=== PATIENT | male | born 1960 | race Caucasian/White ===

== ENCOUNTER 2022-05-15 14:11 | Inpatient (IN) | payer OTHER, SELFPAY ==
[2022-05-15] VITALS (11 sets, daily range): BP systolic 103–125; BP diastolic 62–81; PULSE 77–87; RESP 16–20; TEMP 36.4–36.6; O2SAT 94–97
--- NOTE | ~2022-05-15 | XR_ITS ---
EXAMINATION: XR chest 1V portable DATE: 05/15/2022 14:52 INDICATION: Midsternal chest pain post rotator cuff surgery TECHNIQUE: frontal view of the chest was obtained. COMPARISON: None FINDINGS: Mild elevation of the left hemidiaphragm. Pulmonary vascular congestion. Mild airspace opacities at t he left lung base. No pleural effusion or pneumothorax. The cardiomediastinal silhouette is normal. IMPRESSION: 1. Pulmonary vascular congestion. 2. Opacities at the left lung base which could represent atelectasis with elevation of left hemidiaph ragm although differential would include pneumonia or mild pulmonary edema. Reviewed, dictated and finalized at location B. IMPRESSION: 1. Pulmonary vascular congestion. 2. Opacities at the left lung base which could represent atelectasis with eleva tion of left hemidiaphragm although differential would include pneumonia or mil d pulmonary edema.
--- NOTE | 2022-05-15 14:22 | ECG_ITS ---
Measurements Intervals [place] Rate: 89 P: 52 IN: 141 QRS: 52 QRSD: 95 T: 46 QT: 368 QTc: 449 Interpretive Statements SINUS RHYTHM POSSIBLE LEFT ATRIAL ENLARGEMENT INCOMPLETE RIGHT BUNDLE BRANCH BLOCK BASELINE ARTIFACT- I, II, AVR, AVL, AVF BORDERLINE ECG Electronically Signed On 05-15-2022 14:25:42 CDT by Gilberto Solares D.O.
--- NOTE | 2022-05-15 14:25 | ED.CHESTPAIN ---
HPI - Chest Pain General Chief Complaint: Chest Pain Stated Complaint: STEMI Time Seen by Provider: 05/15/22 14:14 History of Present Illness HPI narrative: Patient is 62 years old 1 hour status post left shoulder surgery at the surgical center, while was in the recovery room started having retrosternal chest pain going to his neck and jaw. EMT arrived and called out emergency room for STEMI. That EKG and out EKG on arrival to the emergency room showed no signs of STEMI. Dr. Gaspar was notified and agreed with our reading for the EKG. Dr. Rob as well notified and agreed that the EKG did not show STEMI. History of diabetes, hypertension, hyperlipidemia, 5 coronary stents last one was 7 years ago at [facility]. Patient also smokes, drinks and does not use drugs. Currently patient on aspirin 81 mg once a day and the Brilinta Related Data Allergies Allergy/AdvReac Type Severity Reaction Status Date / Time No Known Allergies Allergy Verified 05/15/22 14:31 Review of Systems Review of Systems: All systems reviewed & are unremarkable except as noted in HPI and below Exam Narrative: General appearance: Well-developed, well-nourished, looks in pain Skin: Pale Head: Normocephalic, nontraumatic Eyes: Clear conjunctiva ENT: Oropharynx normal, ears normal, nose normal Neck: Supple, nontender Chest and respiratory: Airway patent, no respiratory distress, no accessory muscle use Heart: Regular rate/rhythm Abdomen: Soft, nontender, no organomegaly, quiet bowel sounds Vascular: Normal peripheral pulses, normal capillary refill. Musculoskeletal: Left shoulder dressing in place with severe limited range of motion Neurologic: Alert and oriented ?3, ROLLER PAINTER is normal as tested, no gross motor deficit Course Consultations Consultation #1: Dr. Parekh EKG showed no STEMI Vital Signs Vital signs: Vital Signs Temperature 36.4 C L 05/15/22 14:16 Pulse Rate 82 05/15/22 14:16 Respiratory Rate 20 05/15/22 14:16 Blood Pressure 122/77 05/15/22 14:16 Pulse Oximetry 94 05/15/22 14:16 Oxygen Delivery Room Air 05/15/22 14:16 Temperature 36.4 C L 05/15/22 14:16 Pulse Rate 85 05/15/22 15:09 Respiratory Rate 16 05/15/22 15:09 Blood Pressure 103/72 05/15/22 15:09 Pulse Oximetry 96 05/15/22 15:09 Oxygen Delivery Room Air 05/15/22 14:30 MDM - Chest Pain Differential Diagnosis Differential diagnosis: Likely chest pain Medical Records Data Attestation: I reviewed the patient's medical records. Lab Data Result diagrams: 05/15/22 14:26 05/15/22 14:26 Labs: Lab Results 05/15/22 05/15/22 05/15/22 Range/Units 14:26 14:26 14:26 WBC 10.8 H (4.5-10.0) K/mm3 RBC 5.65 (4.6-6.20) M/mm3 Hgb 16.5 (14.0-18.0) g/dL Hct 49.5 (42.0-52.0) % MCV 87.6 (80-100) fl MCH 29.2 (26-34) pg MCHC 33.3 (32-36) g/dl RDW 12.3 (11.5-14.5) % Plt Count 176 (150-375) k/mm3 MPV 9.8 (7.4-10.4) fl Immature Gran % (Auto) 0.6 H (0-0.5) % Neut % (Auto) 87.5 H (45.5-73.1) % Lymph % (Auto) 8.7 L (18.3-44.2) % Kings % (Auto) 2.3 L (2.6-8.5) % Eos % (Auto) 0.4 (0-4.4) % Baso % (Auto) 0.5 (0.2-1.2) % Lymph # (Auto) 0.94 (0.9-3.2) K/mm3 Kings # (Auto) 0.3 (0.1-0.6) K/mm3 Eos # (Auto) 0.0 (0-0.3) K/mm3 Baso # (Auto) 0.1 (0.0-0.1) K/mm3 Abs Immat Gran (auto) 0.06 H (0.00-0.031) K/mm3 Absolute Neuts (auto) 9.4 H (1.3-6.7) K/mm3 Absolute Nucleated RBC 0.0 (0.0-0.012) K/mm3 Nucleated RBC % 0.0 (0.0-0.2) % PT 13.6 (11.1-14.7) Seconds INR 1.1 APTT 33.5 (22.3-36.8) SECONDS Sodium 136 L (137-145) mmol/
[2022-05-15 14:33] LABS: Basophils Absolute Auto 0.1 K/mm3 (0.0-0.1); Basophils Percent Auto 0.5 % (0.2-1.2); Eosinophils Percent Auto 0.4 % (0-4.4); Hematocrit 49.5 % (42.0-52.0); Hemoglobin 16.5 g/dL (14.0-18.0); Immature Granulocyte Absolute 0.06 K/mm3 (0.00-0.031); Immature Granulocyte Percent A 0.6 % (0-0.5); Lymphocytes Absolute Auto 0.94 K/mm3 (0.9-3.2); Lymphocytes Percent Auto 8.7 % (18.3-44.2); Mean Corpuscular HGB Conc 33.3 g/dl (32-36); Mean Corpuscular Hemoglobin 29.2 pg (26-34); Mean Corpuscular Volume 87.6 fl (80-100); Mean Platelet Volume 9.8 fl (7.4-10.4); Monocytes Absolute Auto 0.3 K/mm3 (0.1-0.6); Monocytes Percent Auto 2.3 % (2.6-8.5); Neutrophils Absolute Auto 9.4 K/mm3 (1.3-6.7); Neutrophils Percent Auto 87.5 % (45.5-73.1); Platelet Count Result 176 k/mm3 (150-375); Red Blood Count 5.65 M/mm3 (4.6-6.20); Red Cell Distribution Width 12.3 % (11.5-14.5); White Blood Count 10.8 K/mm3 (4.5-10.0)
[2022-05-15] MEDS: METOPROLOL TARTRATE 50 MG TAB 25 MG PO (14:40)
[2022-05-15 14:44] LABS: Alanine Aminotransferase 31 U/L (6-50); Albumin Level 4.4 g/dL (3.5-5.1); Alkaline Phosphatase 73 U/L (38-126); Anion Gap 9 mmol/L (8-16); Aspartate Amino Transferase 32 U/L (17-59); Bilirubin,Total 0.6 mg/dL (0.2-1.3); Blood Urea Nitrogen 21 mg/dL (9-20); Calcium 8.5 mg/dL (8.4-10.2); Carbon Dioxide 22 mmol/L (22-30); Chloride 105 mmol/L (98-107); Estimated CRCL calculation 79 ml/min; Estimated Glomerular Filt Rate > 60; Glucose 305 mg/dL (65-110); Potassium 4.9 mmol/L (3.4-5.0); Sodium 136 mmol/L (137-145)
[2022-05-15 14:49] LABS: INR 1.1; Partial Thromboplastin Time 33.5 SECONDS (22.3-36.8); Prothrombin Time 13.6 Seconds (11.1-14.7)
[2022-05-15 14:52] LABS: NT Pro B Type Natriuretic Pept 71 pg/mL (5-100)
[2022-05-15 15:04] LABS: Troponin I < 0.012 ng/mL (0.000-0.034)
--- NOTE | 2022-05-15 15:34 | PM.IMHP ---
H&P: HPI History of Present Illness Date/Time: 05/15/22 15:30 Chief Complaint: Chest pain Narrative: this pleasant, 62-year-old male patient with significant of diabetes mellitus, hypertension, hyperlipidemia, coronary stents x5 on chronic aspirin and Brilinta presents to the emergency room sent from the surgery center where he underwent an arthroscopic procedure of the left shoulder today by Dr. Rico. Patient was in the recovery room after his procedure and began screaming in pain of having chest pain. He endorse that the pain that he was experiencing at that time was central in the chest and radiated up the center of his chest and went to both jaws left and right. He described the pain as initially he was not sure and then stated that it was actually more of a pressure. He endorses that he is actually feeling it now as well. Due to his significant cardiac history patient was sent to the emergency room here for evaluation. In route to the emergency room it was called in as a STEMI. Upon further evaluation of the 12 lead EKG upon arrival there was no STEMI and repeat EKG also did not show any appreciated of STEMI. He ER physician did discuss the appearance of the EKG with 2 tower foreman, Dr. Harris and Dr. Parekh, Both of whom agreed not a STEMI. Initial troponin is negative, BNP is 71 electrolytes are within normal limits and patient does not have any signs of acute bleeding or acute infection. Hospitalist service is asked to admit the patient to observation overnight for continued rule out with serial troponins and EKGs and telemetry. patient currently has some residual mild pain left. He has Tylenol ordered for pain as well as morphine and nitroglycerin. He has been off his aspirin and Brilinta for 1 week prior to surgery. Patient denies any dyspnea, nausea, vomiting, diarrhea and he is not diaphoretic nor does he have any complaints of headache or dizziness. His vital signs are stable. Patient has been given nitroglycerin and reports that it has not made any difference in his pain. Currently at the time of my admission, the pain is at a 3/10 and is tolerable. The pt. has no other complaints at this time such as Dyspnea, N/V and no diaphoresis. He is able to speak comfortably through the HPI interview in complete, uninterrupted sentences. At the time the patient was admitted, his home medications were not yet placed into the EMR, nor were they verified by staff. Review of Systems Review of Systems: All systems reviewed & are unremarkable except as noted in HPI and below Meds Home Medications and Allergies Allergies Allergy/AdvReac Type Severity Reaction Status Date / Time No Known Allergies Allergy Verified 05/15/22 14:31 Vital Signs Vital Signs - 24 hr 05/15/22 14:16 05/15/22 14:30 05/15/22 14:40 Temperature 97.5 F L Pulse Rate 82 84 Respiratory Rate 20 Blood Pressure 122/77 Pulse Oximetry 94 94 Oxygen Delivery Room Air Room Air 05/15/22 14:46 05/15/22 15:09 Temperature Pulse Rate 87 85 Respiratory Rate 20 16 Blood Pressure 113/74 103/72 Pulse Oximetry 95 96 Oxygen Delivery Exam Const: General: no acute distress and uncomfortable Other: Patient appears slightly groggy which is likely due to the fact he just had anesthesia. The left shoulder is surgical bandage. HENMT: General nose exam: Normal nares present Mouth: Yes moist mucous membranes Eyes: General: appearance normal, both eyes and all related structures Sclera: sclerae normal Pupils: Equal, round and reactive pupils present EOM: EOMs intact bilaterally Neck: Neck: supple ( Slight tenderness to the left side moving towards the operative shoulder.) and no JVD Carotids: no bruits Chest: Other: Not currently tender to palpation. Resp: Effort & Inspection: normal respiratory effort Auscultation: clear to auscultation bilaterally Cardio: Rate: regular rate Rhythm: regular rhythm Heart sounds: no dye
[2022-05-15 16:13] LABS: SARS-CoV-2 RNA PCR Negative
[2022-05-15 17:23] LABS: Hemoglobin A1C 10.4 % (<5.7)
[2022-05-15 17:38] LABS: Troponin I 0.055 ng/mL (0.000-0.034)
[2022-05-15] MEDS: INSULIN ASPART (*BKC) 100 UNITS/ML SUB-Q (18:37)
[2022-05-15 19:14] LABS: Glucose Point of Care 245 mg/dl (65-105)
[2022-05-15] MEDS: PANTOPRAZOLE SODIUM IV 40 MG VIAL IV PUSH (21:47)
--- NOTE | 2022-05-15 22:10 | ADMGEN ---
This patient, Andrea Rosado, was admitted to IMU Room 205-02 on 05/15/22 at 2100. Patient/family oriented to hospital policies and general routines including ID bracelet, bed and alarms, visiting hours, pain management, procedures, bathroom and other care routines, personal items, smoking policy, room service/diet, and visiting hours. Information on how to activate the Rapid Response Team has been discussed. Patient/Family are encouraged to report perceived risks to care and to ask questions if they do not understand what they are told or what they should do.
[2022-05-15 22:21] LABS: Glucose Point of Care 307 mg/dl (65-105)
--- NOTE | 2022-05-15 22:37 | ECG_ITS ---
Measurements Intervals [facility] Rate: 74 P: 60 KS: 149 QRS: 50 QRSD: 108 T: 23 QT: 384 QTc: 428 Interpretive Statements SINUS RHYTHM INCOMPLETE RIGHT BUNDLE BRANCH BLOCK BORDERLINE ECG Electronically Signed On 05-16-2022 9:12:14 CDT by Gilberto Solares D.O.
[2022-05-16] VITALS (19 sets, daily range): BP systolic 106–144; BP diastolic 67–93; PULSE 65–92; RESP 12–20; TEMP 36.2–36.6; O2SAT 95–100
[2022-05-16] MEDS: ENOXAPARIN 100 MG/ML SYRINGE 85 MG SUB-Q (00:10)
[2022-05-16] MEDS: MORPHINE SULFATE (*CRX) 4 MG/ML INJ IV PUSH ×4 (00:21→23:37)
--- NOTE | 2022-05-16 04:29 | ECG_ITS ---
Measurements Intervals [place] Rate: 67 P: 58 ND: 142 QRS: 44 QRSD: 112 T: 29 QT: 410 QTc: 434 Interpretive Statements SINUS RHYTHM POSSIBLE LEFT ATRIAL ENLARGEMENT INCOMPLETE RIGHT BUNDLE BRANCH BLOCK BASELINE ARTIFACT- I, II BORDERLINE ECG Electronically Signed On 05-16-2022 9:23:07 CDT by Gilberto Solares D.O.
[2022-05-16] MEDS: traMADol HCL (*CRX) 50 MG TABLET PO (04:46)
[2022-05-16] MEDS: NITROGLYCERIN SL 0.4 MG TABLET SUBLINGUAL (05:12)
[2022-05-16 05:34] LABS: Basophils Percent Auto 0.2 % (0.2-1.2); Eosinophils Percent Auto 0.3 % (0-4.4); Hematocrit 45.9 % (42.0-52.0); Hemoglobin 15.2 g/dL (14.0-18.0); Immature Granulocyte Absolute 0.06 K/mm3 (0.00-0.031); Immature Granulocyte Percent A 0.4 % (0-0.5); Lymphocytes Absolute Auto 1.52 K/mm3 (0.9-3.2); Lymphocytes Percent Auto 10.9 % (18.3-44.2); Mean Corpuscular HGB Conc 33.1 g/dl (32-36); Mean Corpuscular Hemoglobin 29.1 pg (26-34); Mean Corpuscular Volume 87.8 fl (80-100); Neutrophils Absolute Auto 11.3 K/mm3 (1.3-6.7); Neutrophils Percent Auto 81.2 % (45.5-73.1); Platelet Count Result 163 k/mm3 (150-375); Red Blood Count 5.23 M/mm3 (4.6-6.20); Red Cell Distribution Width 12.2 % (11.5-14.5)
[2022-05-16 05:44] LABS: Alanine Aminotransferase 29 U/L (6-50); Alkaline Phosphatase 62 U/L (38-126); Anion Gap 8 mmol/L (8-16); Aspartate Amino Transferase 55 U/L (17-59); Bilirubin,Total 0.6 mg/dL (0.2-1.3); Blood Urea Nitrogen 21 mg/dL (9-20); Calcium 8.3 mg/dL (8.4-10.2); Carbon Dioxide 23 mmol/L (22-30); Chloride 104 mmol/L (98-107); Estimated CRCL calculation 79 ml/min; Estimated Glomerular Filt Rate > 60; Glucose 214 mg/dL (65-110); Magnesium 2.1 mg/dL (1.6-2.3); Potassium 4.2 mmol/L (3.4-5.0); Sodium 135 mmol/L (137-145)
--- NOTE | 2022-05-16 07:45 | PM.IMPN ---
Progress Note: A&P Assessment and Plan (1) NSTEMI (non-ST elevated myocardial infarction): Code(s): I21.4 - Non-ST elevation (NSTEMI) myocardial infarction Status: Acute Assessment and Plan: - Troponin continue to trend up and peaked at 5.550 - Heart Score: 5; JOSE MANUEL Score: 2 - ASA given in ED, will need to be continued when able to take PO - Nitro, Morphine and Tylenol ordered PRN. - Cardiology consulted thank you for your help - wharf labourer today - IV Protonix 40 mg BID ordered for possible etiology of Reflux given patient has been NPO since MN. - Telemetry monitoring ordered. - Fall Precautions. - Will continue statin as well when able to take PO (2) Status post shoulder surgery: Code(s): Z98.890 - Other specified postprocedural states Status: Acute Assessment and Plan: - Continue Fall Precautions. - PRN pain meds ordered. - At discharge, will follow up per Dr. Rico's recommendations. (3) CAD (coronary artery disease): Code(s): I25.10 - Atherosclerotic heart disease of [place] coronary artery without angina pectoris Status: Acute Assessment and Plan: - No Brillinta or ASA for the past 7 days. - + Hx of stent x5. - See Plan for problem #1 with ruling out of ACS. (4) Diabetes mellitus: Code(s): E11.9 - Type 2 diabetes mellitus without complications Status: Acute Assessment and Plan: - Current glucose is 214 - Accu checks AC and HS - Hypoglycemia Protocol - Heart healthy diet - SSI low dose - A1c is 10.5 - Monitor VS and AM labs - start on ISS (5) Mixed hyperlipidemia due to type 2 diabetes mellitus: Code(s): E11.69 - Type 2 diabetes mellitus with other specified complication; E78.2 - Mixed hyperlipidemia Status: Acute Assessment and Plan: Continue simvastatin when appropriate (6) Hypertension associated with diabetes: Code(s): E11.59 - Type 2 diabetes mellitus with other circulatory complications; I15.2 - Hypertension secondary to endocrine disorders Status: Acute Assessment and Plan: Current BP is 127/77 Contineu home lisinopril when appropriate trend blood pressure adjust medications as indicated Time Spent With Patient Time with patient: Greater than 35 minutes Subjective Date/time seen: 05/16/22 13:41 Interval history: 05/16/22 0745 Patient was sitting on side of bed talking on the phone. Patient stated that he has had chest pain all night off and on. He denies any accompanying symptoms including sweats, shortness of breath, nausea, vomiting. He did state the pain was 1/10. He also denied any headaches or visual changes. Patient appears stable at this time. He did state that he had gotten nitroglycerin which did help relieve the chest pain. 05/15/22? 15:30 This pleasant, 62-year-old male patient with significant of? diabetes mellitus, hypertension, hyperlipidemia, coronary stents x5 on chronic aspirin and Brilinta presents to the emergency room sent from the surgery center where he underwent an arthroscopic procedure of the left shoulder today by Dr. Rico. Patient was in the recovery room after his procedure and? began screaming in pain of having chest pain.? He endorse that the pain that he was experiencing at that time was central in the chest and radiated up the center of his chest and went to both jaws left and right.? He described the pain as initially he was not sure and then stated that it was actually more of a pressure.? He endorses that he is actually feeling it now as well.? Due to his significant cardiac history patient was sent to the emergency room here for evaluation.? In route to the emergency room it was called in as a STEMI. ? Upon further evaluation of the 12 lead EKG upon arrival there was no STEMI and repeat EKG also did not show any appreciated of STEMI.? He ER physician did discuss the appearance of the EKG with 2 superintendent building, Dr. Harris and
[2022-05-16 08:06] LABS: Glucose Point of Care 266 mg/dl (65-105)
--- NOTE | 2022-05-16 08:37 | PM.CNCAR ---
Assessment and Plan Assessment and plan (1) NSTEMI (non-ST elevated myocardial infarction): Code(s): I21.4 - Non-ST elevation (NSTEMI) myocardial infarction Status: Acute Assessment and Plan: Postop myocardial infarction history of hypertension, hyperlipidemia, type 2 diabetes mellitus, and previous known history of CAD with 5 previously placed stent 2015. Patient developed unstable angina postoperatively with elevated troponin greater than [address] elevation on EKG consistent with NSTEMI. Patient is NPO. Hold off on further systemic anticoagulation. Coronary angiography advised for delineation of coronary anatomy. Risks, benefits, and alternatives explained in detail. All questions answered to patient's satisfaction. Patient agreed to proceed with coronary angiography. Discussed with Dr. Parekh who agrees to proceed with plan of care. Patient is currently asymptomatic after sublingual nitroglycerin. Explained in detail increase risk bleeding complications given recent left shoulder surgery need for anticoagulant and dual antiplatelet therapy. Patient understands and accepts this risk. Explained the potential complications in which postoperative bleeding can result. Continue aggressive risk modification. Continue aspirin, statin, beta-maury therapy. 2D echocardiogram to assess LV wall motion, LV size/systolic and diastolic function, valve pathology pulmonary pressures. Recommendation to follow-up. Keep patient NPO anticipation of coronary angiography today. Telemetry. DVT prophylaxis. (2) CAD (coronary artery disease): Code(s): I25.10 - Atherosclerotic heart disease of [place] coronary artery without angina pectoris Status: Acute Assessment and Plan: As above. Aggressive medical therapy. Continue Jardiance, JUMA-inhibitor, simvastatin, aspirin, beta-maury therapy. (3) Hypertension associated with diabetes: Code(s): E11.59 - Type 2 diabetes mellitus with other circulatory complications; I15.2 - Hypertension secondary to endocrine disorders Status: Acute Assessment and Plan: Reasonably controlled. Continue medical therapy. (4) Mixed hyperlipidemia due to type 2 diabetes mellitus: Code(s): E11.69 - Type 2 diabetes mellitus with other specified complication; E78.2 - Mixed hyperlipidemia Status: Acute Assessment and Plan: Check lipid panel. Goal LDL less than 70. (5) Status post shoulder surgery: Code(s): Z98.890 - Other specified postprocedural states Status: Acute Assessment and Plan: Management Per surgical recommendations. Monitor for bleeding complications as counseled. (6) Diabetes mellitus: Code(s): E11.9 - Type 2 diabetes mellitus without complications Status: Acute Assessment and Plan: Management Per primary service. History of Present Illness History of Present Illness Consult date/time: Date of service: 05/16/22 08:37 Requesting physician: Jn Hurley MD Reason For Visit: chest pain Narrative: Patient is a very pleasant 62-year-old male with a past medical history significant for type 2 diabetes mellitus, hypertension, hyperlipidemia, history of CAD multiple previously placed stents including a 4.0 x 40 mm Promus drug-eluting stent proximal LAD, bare metal stent RCA 4.5 x 18 mm, 4.5 x 13 mm overlapped with a 4.5 x 13 mm stent placed May 2015. Patient while in the holding area post intervention had recurrent chest pain and ST-elevation [place] for which repeat angiography was performed and a PTCA of bifurcation of PDA and PLV was performed a 4.0 x 15 mm integrity bare metal stent was placed in the distal RCA. Patient is followed by [facility] and reports he had been feeling well without anginal symptoms or exertional dyspnea. He was evaluated preoperatively by Dr. Fisher and cleared for arthroscopic surgery of the left shoulder which was performed earlier in the day
[2022-05-16 09:22] LABS: INR 1.1; Prothrombin Time 13.8 Seconds (11.1-14.7)
[2022-05-16 09:23] LABS: Partial Thromboplastin Time 38.7 SECONDS (22.3-36.8)
[2022-05-16] MEDS: PANTOPRAZOLE SODIUM IV 40 MG VIAL IV PUSH ×2 (09:34→20:09)
--- NOTE | 2022-05-16 12:43 | ECHO_ITS ---
Patient Info Name: Andrea Rosado Age: 62 years : 1960 Gender: Male Ht: 68 in Wt: 157 lbs BSA: 1.85 m2 HR: 65 bpm BP: 127 / 77 mmHg Heart Rhythm: Sinus Rhythm Exam Date: 05/16/2022 2:05 PM Exam Location: [facility] Patient Status: Inpatient Admit Date: 05/16/2022 Staff Ordering Physician: Conor Cobos MD Night Stocker: Man Vick, JENNA, RT Attending Provider: Roel Kowalski MD Referring Physician: Papito ESPARZA; Exam Type: CA echo dop color flow w con Study Info Indications I21.4 - Non-ST elevation (NSTEMI) myocardial infarction Strain analysis performed. Complete two-dimensional, color flow and Doppler transthoracic echocardiogram is performed with contrast to opacify the left ventricle and to improve the deliniation of the left ventricle endocardial borders. Summary 1. Technically difficult study with limited views. Definity contrast administration. 2. Left ventricular chamber dimension is normal. 3. Left ventricular systolic function is lower limits of normal, estimated at 50-55%. Hypokinesis of the mid and basal anteroseptal wall observed. 4. The left ventricular diastolic function is grade I diastolic dysfunction. 5. There is trace mitral valve regurgitation. 6. There is no aortic valve stenosis. Left Ventricle Left ventricular chamber dimension is normal. Left ventricular systolic function is lower limits of normal, estimated at 50-55%. Hypokinesis of the mid and basal anteroseptal wall observed. There is no increased left ventricular wall thickness. The left ventricular diastolic function is grade I diastolic dysfunction. Global longitudinal strain is mildly elevated at -14 %. Technically difficult study with limited views. Definity contrast administration. Right Ventricle Right ventricular chamber dimension is normal. Right ventricular systolic function is normal. Left Atria Left atrial chamber dimension is normal. Right Atria Right atrial chamber dimension is normal. Atrial Septum Atrial septal aneurysmal motion. Consider bubble study assess for interatrial shunt if clinically indicated. Aortic Valve The aortic valve is not well visualized. There is mild aortic valve sclerosis. There is no aortic valve stenosis. There is no aortic valve regurgitation. Pulmonic Valve The pulmonic valve is not well visualized. Mitral Valve The mitral valve has thickened leaflets. There is trace mitral valve regurgitation. The mitral valve annulus is mildly calcified. Tricuspid Valve The tricuspid valve leaflets are normal. There is trace tricuspid valve regurgitation. Unable to estimate PA systolic pressure due to poor spectral resolution of tricuspid regurgitant jet velocity. Pericardium/Pleural The pericardium appears not well visualized. There is no pericardial effusion. Inferior Vena Cava Dilated inferior vena cava with <50% collapse upon inspiration consistent with elevated right atrial pressure, 10 mmHg. Aorta The aortic root size at the sinus of Valsalva is normal. There is mild aortic atherosclerosis. Left Ventricular Outflow Tract Name Value Normal LVOT Doppler LVOT Peak Gradient 3 mmHg LVOT Mean Gradient
[2022-05-16 12:49] LABS: Glucose Point of Care 226 mg/dl (65-105)
[2022-05-16] MEDS: PERFLUTREN LIPID MICROSPHERES 1.5 ML VIAL DILUTED TO 10 ML TOTAL VOLUME IV PUSH (13:56)
--- NOTE | 2022-05-16 13:56 | IVDEFINITY ---
Prior to administration of IV Definity the patient was educated on the risks and benefits of the imaging enhancing agent including potential adverse side effects. The patient verbalized understanding. Allergies were verified. No exclusion criteria were identified and at least one of the following inclusion criteria were met: 1) physician request, 2) patient technically difficult to image (per the [place] [employer]chocardi[employer] guidelines of two or more segments not discernable within the apical view), or 3) questionable left ventricular function. ?
--- NOTE | 2022-05-16 14:42 | PC.NURSE ---
To greens laborer for cardiac cath accompanied by [employer] staff
--- NOTE | 2022-05-16 16:11 | WPDMODSED ---
Moderate Sedation Note-Pt Data Patient Data Diagnosis: Non ST-elevation [place] Present Complaint: chest pain following shoulder surgery Procedure to be performed/Plan: left heart catheterization Allergies Allergy/AdvReac Type Severity Reaction Status Date / Time No Known Allergies Allergy Verified 05/15/22 14:31 Home Medications Medication Instructions Recorded Confirmed Type aspirin 81 mg tablet,delayed 1 tablet PO DAILY 05/15/22 05/15/22 History release empagliflozin 25 mg tablet 1 tablet PO DAILY 05/15/22 05/15/22 History (Jardiance) lisinopril 2.5 mg tablet 1 tablet PO DAILY 05/15/22 05/15/22 History simvastatin 40 mg tablet 1 tablet PO DAILY 05/15/22 05/15/22 History ticagrelor 60 mg tablet (Brilinta) 1 tablet PO BID 05/15/22 05/15/22 History Current Medications: Active Medications Dextrose (Dextrose 50% 25 Gm/50 Ml Syringe) 12.5 gm IV PUSH PRN PRN; Protocol PRN Reason: Hypoglycemia Glucagon (Glucagon For Inj 1 Mg Vial) 1 mg IM PRN PRN; Protocol PRN Reason: Hypoglycemia Glucose (Glucose Oral Gel 15 Gm Of Glucse In 37.5 Gm Tube) 15 gm PO PRN PRN; Protocol PRN Reason: Hypoglycemia Dextrose (Dextrose 5% 1,000 Ml) 1,000 mls @ 100 mls/hr IVPB PRN PRN; Protocol PRN Reason: Hypoglycemia Insulin Aspart (Insulin Aspart (*Bkc) 100 Units/Ml) 4 - 8 units SUB-Q TIDWM JONATHON; Protocol Morphine Sulfate (Morphine Sulfate (*Crx) 4 Mg/Ml Inj) 4 mg IV PUSH Q2H PRN PRN Reason: Pain Rated 7-10 Last Admin: 05/16/22 09:56 Dose: 4 mg Nitroglycerin (Nitroglycerin Sl 0.4 Mg Tablet) 0.4 mg SUBLINGUAL Q5MIN PRN PRN Reason: Chest Pain Last Admin: 05/16/22 05:12 Dose: 0.4 mg Ondansetron HCl (Ondansetron Inj 4 Mg/2 Ml Vial) 4 mg IV PUSH Q4H PRN PRN Reason: Nausea Pantoprazole Sodium (Pantoprazole Sodium Iv 40 Mg Vial) 40 mg IV PUSH Q12HR JONATHON Last Admin: 05/16/22 09:34 Dose: 40 mg Sedation/Anesthesia: No previous sedation/anesthesia problems (including family history). [facility] Past Medical History Medical History CAD (coronary artery disease) Diabetes mellitus Hypertension associated with diabetes Mixed hyperlipidemia due to type 2 diabetes mellitus Surgical History Surgical History Status post coronary artery stent placement Status post shoulder surgery Family History Family History Other Hypertension Social History Social History Years smoked: 40 Smoking status: Former smoker Tobacco type: cigarettes Smoking end date: 05/15/22 Alcohol intake: current Drinks per week: 1 Substance use: never Spiritual care concerns: No Mod Sed Physical Exam Physical Exam Pre Procedural Exam: Normal: Appearance, Neck, Throat, Airway, Lungs, Heart Size, Heart Rate, Heart Rhythm, Neuro Exam and Extremities Hours since solid foods: 12 Hours since liquid intake: 12 Mallampati Classification: class II Internal Medicine - PN: Obj Da Vital Signs Vital Signs: Vital Signs - 24 hr 05/15/22 16:38 05/15/22 18:44 05/15/22 21:00 Temperature 36.4 C Pulse Rate 79 77 83 Respiratory Rate 17 20 16 Blood Pressure 122/80 125/81 125/62 Pulse Oximetry 96 97 97 Oxygen Delivery 05/15/22 23:31 05/15/22 21:00 05/15/22 22:00 Temperature 36.6 C Pulse Rate 78 81 79 Respiratory Rate 16 Blood Pressure 124/62 Pulse Oximetry 97 Oxygen Delivery 05/16/22 00:00 05/15/22 21:00 05/16/22 00:00 Temperature Pulse Rate 73 Respiratory Rate Blood Pressure Pulse Oximetry Oxygen Delivery Room Air Room Air 05/16/22 02:00 05/16/22 04:00 05/16/22 04:00 Temperature 36.3 C L Pulse Rate 71 71 Respiratory Rate 16 Blood Pressure 122/79 Pulse Oximetry 95 Oxygen Delivery Room Air 05/16/22 04:00 05/16/22 06:00 05/16/22 08:00 Temperatur
--- NOTE | 2022-05-16 16:12 | WPDCARDPROC ---
Cardiac Cath Procedure Note Date of procedure:: 05/16/22 Performing physician:: Vijay Parekh MD Indication:: non ST-elevation [place] Brief clinical history:: this is a 62-year-old patient who underwent percutaneous revascularization of his LAD and right coronary artery back in 2014. He has been doing well since then. He experienced some chest pain and had a modest troponin rise following shoulder surgery that was done as an outpatient yesterday. The patient's electrocardiogram showed no significant abnormalities. Following this event angiography has been recommended. Procedure Procedure performed:: Coronary angiography left ventriculography femoral artery angiography Angio-Seal to right femoral artery Sedation/Medication given:: fentanyl 50 mg Versed 2 mg case start time 154 case end time 4:07 p.m. Access site:: right femoral artery Estimated blood loss:: 20 cc Procedure note:: patient was brought to the cardiac catheterization lab in the postabsorptive state where the right femoral triangle was prepared and draped in normal fashion. Anesthesia was provided with 1% lidocaine infiltrated locally. Using the modified Seldinger technique a 5 [place] sheath was placed into the femoral artery after this left heart catheterization was carried out. I used a 5 [place] FL4 catheter to engage and inject the left coronary artery in multiple projections. After this I used a 5 [place] JR4 catheter to engage and inject the right coronary artery. After this a 5 [place] angled pigtail catheter was used to inject left ventriculography in the LEIGH projection and to measure left-sided central hemodynamics. Following this case was terminated. An angiogram was done of the femoral artery through the sheath and then a 6 [place] Angio-Seal device was deployed with a good hemostatic result. He was taken to the holding area in stable condition there were no procedural complications and the patient had no evidence of a groin hematoma upon leaving the cardiac catheterization lab. Findings:: Hemodynamics: Central aortic pressure is 122/71 left ventricle 122/0 end-diastolic pressure 15 there is no gradient on pullback across the aortic valve. Left ventricle: The LV is normal in size the inferior segment is markedly hypodynamic but not akinetic remainder of the ventricle contracted well the global ejection fraction is 50-55%. The left main coronary artery is nicely patent the left anterior descending is a moderate caliber artery extending down to the apex. Proximally the LAD has previously deployed stent material that is visible at which location the artery remains nicely patent. There is no significant stenosis lad. It becomes a very small down in the apical segment but no significant lesions are seen. Circumflex is a small caliber vessel giving rise to 2 marginal branches the circumflex system while small is free of stenosis the right coronary artery is moderate caliber and dominant for the posterior circulation right coronary has the 5th and serial in mid to distal portion. Proximal to that in the 2nd portion of the RCA there is chronic appearing 100% occlusion. There is collateral filling through the RPDA and RPL from the LAD through the septum. Conclusion:: 1. Coronary artery disease with right coronary dominant circulation and appears to have chronic total occlusion of the mid RCA proximal to previously deployed stents in the 2nd and 3rd portion of the vessel. The occluded right coronary does receive cocp-ko-wlaur collateral filling through the anterior descending. 2. Previously deployed stents in the proximal LAD remains nicely patent 3. infero posterior hypokinesia with occlusion of the right coronary artery myocardial may be viable but hyper an 80 given the fact that there is no evidence of inferior Q-waves and no significant inferior infarction at the time of presentation. Vijay Parekh MD FACC
[2022-05-16] MEDS: SODIUM CHLORIDE 0.9% IV 1,000 ML 125 ML IV CONT (16:46)
[2022-05-16 17:15] LABS: Glucose Point of Care 196 mg/dl (65-105)
[2022-05-16 20:38] LABS: Glucose Point of Care 282 mg/dl (65-105)
[2022-05-17] VITALS (11 sets, daily range): BP systolic 116–149; BP diastolic 68–80; PULSE 70–85; RESP 16–20; TEMP 36.1–36.9; O2SAT 96–99
[2022-05-17] MEDS: MORPHINE SULFATE (*CRX) 4 MG/ML INJ IV PUSH ×4 (02:53→14:36)
[2022-05-17 05:05] LABS: Basophils Percent Auto 0.2 % (0.2-1.2); Eosinophils Absolute Auto 0.1 K/mm3 (0-0.3); Eosinophils Percent Auto 0.9 % (0-4.4); Hematocrit 44.5 % (42.0-52.0); Immature Granulocyte Absolute 0.03 K/mm3 (0.00-0.031); Immature Granulocyte Percent A 0.3 % (0-0.5); Lymphocytes Absolute Auto 1.74 K/mm3 (0.9-3.2); Lymphocytes Percent Auto 18.6 % (18.3-44.2); Mean Corpuscular HGB Conc 33.7 g/dl (32-36); Mean Corpuscular Hemoglobin 29.2 pg (26-34); Mean Corpuscular Volume 86.7 fl (80-100); Mean Platelet Volume 10.1 fl (7.4-10.4); Monocytes Absolute Auto 0.8 K/mm3 (0.1-0.6); Neutrophils Absolute Auto 6.7 K/mm3 (1.3-6.7); Platelet Count Result 156 k/mm3 (150-375); Red Blood Count 5.13 M/mm3 (4.6-6.20); Red Cell Distribution Width 11.9 % (11.5-14.5); White Blood Count 9.4 K/mm3 (4.5-10.0)
[2022-05-17 05:14] LABS: Alanine Aminotransferase 24 U/L (6-50); Albumin Level 3.7 g/dL (3.5-5.1); Alkaline Phosphatase 58 U/L (38-126); Anion Gap 6 mmol/L (8-16); Aspartate Amino Transferase 41 U/L (17-59); Bilirubin,Total 0.7 mg/dL (0.2-1.3); Blood Urea Nitrogen 18 mg/dL (9-20); Carbon Dioxide 26 mmol/L (22-30); Chloride 104 mmol/L (98-107); Cholesterol 161 mg/dL (0-200); Estimated CRCL calculation 89 ml/min; Estimated Glomerular Filt Rate > 60; Glucose 182 mg/dL (65-110); HDL Direct 29 mg/dL; Potassium 3.8 mmol/L (3.4-5.0); Sodium 136 mmol/L (137-145); Triglycerides 255 mg/dL (<150)
[2022-05-17 05:25] LABS: LDL Cholesterol Direct 73 mg/dL
[2022-05-17 08:26] LABS: Glucose Point of Care 211 mg/dl (65-105)
--- NOTE | 2022-05-17 08:30 | PM.DS ---
DS: Admitting Diagnosis Discharge Date 05/17/2230 Admitting Diagnosis NSTEMI DS: Discharge Diagnosis Discharge Diagnosis (1) NSTEMI (non-ST elevated myocardial infarction): Code(s): I21.4 - Non-ST elevation (NSTEMI) myocardial infarction Status: Acute Assessment and Plan: - Troponin continue to trend up and peaked at 5.550 - Heart Score: 5; JOSE MANUEL Score: 2 - ASA given in ED, will need to be continued when able to take PO - Nitro, Morphine and Tylenol ordered PRN. - Cardiology consulted thank you for your help - laboratory secretary showed 100% RCA occlusion with collateral perfusion no intervention needed - IV Protonix 40 mg BID ordered for possible etiology of Reflux given patient has been NPO since MN. - Telemetry monitoring ordered. - Fall Precautions. - Will continue statin as well when able to take PO Aspirin and Brilinta restarted (2) Status post shoulder surgery: Code(s): Z98.890 - Other specified postprocedural states Status: Acute Assessment and Plan: - Continue Fall Precautions. - PRN pain meds ordered. - At discharge, will follow up per Dr. Rico's recommendations. (3) CAD (coronary artery disease): Code(s): I25.10 - Atherosclerotic heart disease of [place] coronary artery without angina pectoris Status: Acute Assessment and Plan: - No Brillinta or ASA for the past 7 days. - + Hx of stent x5. - See Plan for problem #1 with ruling out of ACS. (4) Diabetes mellitus: Code(s): E11.9 - Type 2 diabetes mellitus without complications Status: Acute Assessment and Plan: - Current glucose is 182 - Accu checks AC and HS - Hypoglycemia Protocol - Heart healthy diet - SSI low dose - A1c is 10.5 - Monitor VS and AM labs - start on ISS (5) Mixed hyperlipidemia due to type 2 diabetes mellitus: Code(s): E11.69 - Type 2 diabetes mellitus with other specified complication; E78.2 - Mixed hyperlipidemia Status: Acute Assessment and Plan: Continue simvastatin when appropriate (6) Hypertension associated with diabetes: Code(s): E11.59 - Type 2 diabetes mellitus with other circulatory complications; I15.2 - Hypertension secondary to endocrine disorders Status: Acute Assessment and Plan: Current BP is 149/80 Continue home lisinopril when appropriate trend blood pressure adjust medications as indicated DS: Summary Hospital Course Hospital Course: Patient is a 62-year-old male with a past medical history of diabetes hypertension, hyperlipidemia and extensive cardiac disease status post 5 stents who presented to the ED after shoulder surgery for chest pain. Troponins were on trend and did increase throughout the night. Cardiology was consulted and patient was given 1 dose of therapeutic Lovenox. Aspirin was also given the ED. patient did get a nitroglycerin which did help his chest pain. Chest pain presented and was consistent throughout the night with no other symptoms. Patient was taken the cardiac rn labor delivery as troponin got as high as 5.550. Cardiac catheterization revealed 100% occlusion of the RCA with collateral revascularization patent stents. Echo was performed and showed an EF of 50-55% and has diastolic dysfunction of grade 1. A1c was elevated at 10.5 however patient stated that his last 2 A1cs over the last couple months have been 7.4 and 7.8. Patient stated that they had recently taken him off glimepiride. Patient currently states that he is having no chest pain, shortness of breath, nausea, vomiting, diarrhea, constipation, weakness or fatigue. Patient did state that he was having some shoulder pain however the pain medicine was helping him. Patient is currently lying in bed in and appears to be stable for discharge. Labs and vital signs are also stable. Medications were restarted. Patient has been educated about cath site care. All questions and plan of care has been updated. Time spent
--- NOTE | 2022-05-17 08:47 | PM.PNCARD ---
Progress Note: A&P Assessment and Plan (1) NSTEMI (non-ST elevated myocardial infarction): Code(s): I21.4 - Non-ST elevation (NSTEMI) myocardial infarction Status: Acute Assessment and Plan: Postop myocardial infarction history of hypertension, hyperlipidemia, type 2 diabetes mellitus, and previous known history of CAD with 5 previously placed stent 2014. Patient developed unstable angina postoperatively with elevated troponin greater than [address] elevation on EKG consistent with NSTEMI. [facility] findings as below: 1. ? ? Coronary artery disease with right coronary dominant circulation and appears to have chronic total occlusion of the mid RCA proximal to previously deployed stents in the 2nd and 3rd portion of the vessel.? The occluded right coronary does receive [id number] collateral filling through the anterior descending. 2.? ? Previously deployed stents in the proximal LAD remains nicely patent 3. ? infero posterior hypokinesia with occlusion of the right coronary artery myocardial may be viable but hyper an 80 given the fact that there is no evidence of inferior Q-waves and no significant inferior infarction at the time of presentation. Continue aggressive risk modification. Continue aspirin, statin, beta-maury therapy. 2D echocardiogram to assess LV wall motion, LV size/systolic and diastolic function, valve pathology pulmonary pressures. Recommendation to follow-up with primary 3rd pressman. (2) CAD (coronary artery disease): Code(s): I25.10 - Atherosclerotic heart disease of [place] coronary artery without angina pectoris Status: Acute Assessment and Plan: As above. Aggressive medical therapy. Continue Jardiance, JUMA-inhibitor, simvastatin, aspirin, beta-maury therapy. (3) Hypertension associated with diabetes: Code(s): E11.59 - Type 2 diabetes mellitus with other circulatory complications; I15.2 - Hypertension secondary to endocrine disorders Status: Acute Assessment and Plan: Reasonably controlled. Continue medical therapy. (4) Mixed hyperlipidemia due to type 2 diabetes mellitus: Code(s): E11.69 - Type 2 diabetes mellitus with other specified complication; E78.2 - Mixed hyperlipidemia Status: Acute Assessment and Plan: Check lipid panel. Goal LDL less than 70. (5) Status post shoulder surgery: Code(s): Z98.890 - Other specified postprocedural states Status: Acute Assessment and Plan: Management Per surgical recommendations. Monitor for bleeding complications as counseled. (6) Diabetes mellitus: Code(s): E11.9 - Type 2 diabetes mellitus without complications Status: Acute Assessment and Plan: Management Per primary service. Subjective Date/time seen: 05/17/22 08:47 Cardiology follow up for NSTEMI Stable overnight with no acute events. Not having any chest pain, shortness of breath, dizziness. Review of Systems Review of Systems: All systems reviewed & are unremarkable except as noted in HPI and below Constitutional: Constitutional: Reports as per HPI, Reports no additional constitutional complaints and Denies frequent falls Eyes: Eyes: Reports as per HPI and Reports no additional eye complaints ENT: Reports system reviewed and no additional complaints, except as documented, Reports as per HPI and Denies dizziness Cardiovascular: Cardiovascular: Reports as per HPI, Reports no additional cardiovascular complaints, Reports chest pain at rest, Denies leg edema, Denies palpitations, Denies dyspnea and Denies dyspnea on exertion Respiratory: Respiratory: Reports as per HPI, Reports no additional respiratory complaints, Denies dyspnea and Denies dyspnea on exertion Gastrointestinal: Gastrointestinal: Reports as per HPI, Reports no additional gastrointestinal complaints and Reports nausea Genitourinary: Genitourinary: Reports no additional male genitourinary complaints and Reports as per HPI M
[2022-05-17] MEDS: PANTOPRAZOLE SODIUM IV 40 MG VIAL IV PUSH (09:07)
[2022-05-17] MEDS: INSULIN ASPART (*BKC) 100 UNITS/ML SUB-Q (09:08)
[2022-05-17] MEDS: EMPAGLIFLOZIN 25 MG TABLET PO (09:08)
[2022-05-17] MEDS: TICAGRELOR 60 MG TABLET PO (09:08)
[2022-05-17] MEDS: ASPIRIN 81 MG ENTERIC TABLET PO (09:08)
[2022-05-17] MEDS: lisinopriL 2.5 MG TABLET PO (09:08)
[2022-05-17] MEDS: SIMVASTATIN 20 MG TABLET 40 MG PO (09:08)
== END 2022-05-17 15:32 | disposition home or self-care (01) | DRG 282 ==
LOC: ANHED 15:27 → ANHIMU 17:46
PROVIDERS: Nurse Practitioner Adult Health; Specialist; Admitting Provider Internal Medicine; Emergency Provider Emergency Medicine; PCP Internal Medicine; Visit Provider Nurse Practitioner
PROC: 4A023N7 Measurement of Cardiac Sampling and Pressure, Left Heart, Percutaneous Approach (ICD-10-PCS; CPT 93452; principal; 2022-05-16 15:00)
PROC: 4A023N7 Measurement of Cardiac Sampling and Pressure, Left Heart, Percutaneous Approach (ICD-10-PCS; 2022-05-16 15:00)
DX: I97.191 Other postprocedural cardiac functional disturbances following other surgery (principal); I21.4 Non-ST elevation (NSTEMI) myocardial infarction; I25.10 Atherosclerotic heart disease of native coronary artery without angina pectoris; E11.69 Type 2 diabetes mellitus with other specified complication; E78.2 Mixed hyperlipidemia; E11.59 Type 2 diabetes mellitus with other circulatory complications; I15.2 Hypertension secondary to endocrine disorders; K21.9 Gastro-esophageal reflux disease without esophagitis; Z20.822 Contact with and (suspected) exposure to COVID-19; Z95.5 Presence of coronary angioplasty implant and graft; I25.2 Old myocardial infarction
CPT/HCPCS: 36415; 71045; 80053; 80061; 82948; 83036; 83735; 83880; 84484; 85025; 85610; 85730; 93005; 93458; 96365; 96366; 96372; 96375; 96376; 99285; A9270; C1760; C1769; C1887; C1894; C8929; C9113; C9803; G0269; G0378; J0131; J1644; J1650; J1815; J2250; J2270; J2310; J3010; J7030; J7040; Q9957; U0003; U0005